=== PATIENT | female | born 1980 | race Caucasian/White ===

== ENCOUNTER 2018-04-09 12:12 | Emergency (ER) | payer MEDICAID ==
[2018-04-09 12:27] VITALS: BMI 29.8
[2018-04-09 12:31] VITALS: RESP 18; TEMP 99.1
--- NOTE | 2018-04-09 12:46 | ED PDOC ---
Arrival/HPI - General Chief Complaint: Cough, Cold, Congestion Time Seen by Provider: 04/09/18 12:33 Historian: Patient - History of Present Illness Narrative History of Present Illness (Text): 04/09/18 12:40 37 year old female, whose past medical history includes seizure, presents complaining of cough for the past month associated with headache for the past 3 days. Patient reports episode of nausea, vomiting and diarrhea yesterday, but none today. Patient tried nyquil and dayquil with no relief. Patient denies any fever, runny nose, nasal congestion, chills, chest pain, shortness of breath, abdominal pain, urinary symptoms, back pain, neck pain, headache, dizziness, or any other complaints. PMD: Dr. Malika Vieyra Time/Duration: Other (3 days) Symptom Onset: Gradual Symptom Course: Unchanged Activities at Onset: Light Context: Home Past Medical History - Provider Review Nursing Documentation Reviewed: Yes - Infectious Disease Hx of Infectious Diseases: None - Tetanus Immunization Tetanus Immunization: Unknown - Past Medical History Past Medical History: No Previous - Cardiac Hx Cardiac Disorders: No - Pulmonary Hx Respiratory Disorders: No - Neurological Hx Seizures: Yes - HEENT Hx HEENT Disorder: No - Renal Hx Renal Disorder: No - Endocrine/Metabolic Hx Endocrine Disorders: No - Hematological/Oncological Hx Blood Transfusions: (UNKNOWN) Hx Blood Transfusion Reaction: (UNKNOWN) - Integumentary Hx Dermatological Disorder: No - Musculoskeletal/Rheumatological Hx Musculoskeletal Disorders: No - Gastrointestinal Hx Gastrointestinal Disorders: No - Genitourinary/Gynecological Hx Genitourinary Disorders: No - Psychiatric Hx Psychophysiologic Disorder: No Hx Anxiety: No Hx Bipolar Disorder: No Hx Depression: No Hx Emotional Abuse: No Hx Hallucinations: No Hx Panic Disorder: No Hx Post Traumatic Stress Disorder: No Hx Psychosis: No Hx Physical Abuse: No Hx Schizophrenia: No Hx Sexual Abuse: No Hx Substance Use: No - Surgical History Hx Section: Yes (x2) - Anesthesia Hx Anesthesia Reactions: No Hx Malignant Hyperthermia: No - Suicidal Assessment Feels Threatened In Home Enviroment: No Family/Social History - Physician Review Nursing Documentation Reviewed: Yes Family/Social History: No Known Family HX Smoking Status: Never Smoked Hx Alcohol Use: No Hx Substance Use: No Hx Substance Use Treatment: No Allergies/Home Meds Allergies/Adverse Reactions: Allergies No Known Allergies Allergy (Verified 03/09/15 13:47) Home Medications: Home Meds Medication Instructions Recorded Confirmed Metoclopramide [Reglan] 5 mg PO ACTID 01/11/16 01/11/16 Review of Systems - Physician Review All systems were reviewed & negative as marked: Yes - Review of Systems Constitutional: absent: Fevers, Other (Chills) Respiratory: Cough. absent: SOB Cardiovascular: absent: Chest Pain Gastrointestinal: Diarrhea, Nausea, Vomiting. absent: Abdominal Pain Musculoskeletal: absent: Back Pain, Neck Pain Neurological: Headache. absent: Dizziness Physical Exam Vital Signs Reviewed: Yes Vital Signs Temp Pulse Resp BP Pulse Ox 04/09/18 12:12 99.1 F 89 18 118/78 98 Temperature: Afebrile Blood Pressure: Normal Pulse: Regular Respiratory Rate: Normal Appearance: Positive for: Well-Appearing, Non-Toxic, Comfortable Pain Distress: None Mental Status: Positive for: Alert and Oriented X 3 - Systems Exam Head: Present: Atraumatic, Normocephalic Pupils: Present: PERRL Extroacular Muscles: Present: EOMI Conjunctiva: Present: Normal Mouth: Present: Moist Mucous Membranes Neck: Present: Normal Range of Motion Respiratory/Chest: Present: Clear to Auscultation, Good Air Exchange. No: Respiratory Distress, Accessory Muscle Use Cardiovascular: Present: Regular Rate and Rhythm, Normal S1, S2. No: Murmurs Abdomen: No: Tenderness, Distention, Peritoneal Signs Back: Present: Normal Inspection Upper Extremity: Present: Normal Inspection. No: Cyanosis, Edema Lower Extremity: Present: Normal Inspection. No: Edema Neurological: Present: GCS=15, CN II-XII Intact, Speech Normal Skin: Present: Warm, Dry, Normal Color. No: Rashes Psychiatric: Present: Alert, Oriented x 3, Normal Insight, Normal Concentration Medical Decision Making ED Course and Treatment: 04/09/18 12:40 Impression: 37 year old female presents complaining of cough for the past month associated with headache for the past 3 days. Patient reports episode of nausea, vomiting, and diarrhea yesterday. Plan: -- CXR -- Toradol -- Reassess and disposition Prior Visits: Notes and results from previous visits were reviewed. Progress Notes: Patient given 60mg toradol IM for headache. CXR was done and was unremarkable. On re-eval patient states that she feels better. Advised tylenol/motrin for headache. Discussed etiology of month-long cough, patient denies history of GERD, post-nasal drip, or allergies. Will give Rx for zpack for bronchitis, and tessalon pearles for cough. Advised patient to follow up with PMD as needed. Return to the ED for any new or worsening symptoms. - RAD Interpretation Narrative RAD Interpretations (Text): CXR with NAD Programmer Or Analyst: ED Physician, Radiologist - Scribe Statement The provider has reviewed the documentation as recorded by the Alenaibsandra Hernandez Provider Scribe Attestation: All medical record entries made by the Scribe were at my direction and personally dictated by me. I have reviewed the chart and agree that the record accurately reflects my personal performance of the history, physical exam, medical decision making, and the department course for this patient. I have also personally directed, reviewed, and agree with the discharge instructions and disposition. Disposition/Present on Arrival - Present on Arrival Any Indicators Present on Arrival: No History of DVT/PE: No History of Uncontrolled Diabetes: No Urinary Catheter: No History of Decub. Ulcer: No History Surgical Site Infection Following: None - Disposition Have Diagnosis and Disposition been Completed?: Yes Diagnosis: Cough, Headache Disposition: HOME/ ROUTINE Disposition Time: 15:13 Patient Problems: Current Active Problems Problem Status Onset Cough Acute Headache Acute Condition: GOOD Discharge Instructions (ExitCare): Cough, Adult (DC), Headache, Adult (DC) Additional Instructions: BARBARA GREENE, thank you for letting us take care of you today. Your provider was Lorena Gerber MD and you were treated for cough,heada carlos,vomittimg. The emergency medical care you received today was directed at your acute symptoms. If you were prescribed any medication, please fill it and take as directed. It may take several days for your symptoms to resolve. Return to the Emergency Department if your symptoms worsen, do not improve, or if you have any other problems. Please contact your doctor or call one of the physicians/clinics you have been referred to that are listed on the Patient Visit Information form that is included in your discharge packet. Bring any paperwork you were given at discharge with you along with any medications you are taking to your follow up visit. Our treatment cannot replace ongoing medical care by a primary care provider outside of the emergency department. Thank you for allowing the [facility] team to be part of your care today. If you had an X-Ray or CT scan: A Radiologist will review the ED reading if any change in treatment is needed we will contact you. If you had a blood, urine, or wound culture: It will take several days for the results, if any change in treatment is needed we will contact you. If you had an STI test: It will take 48 hours for the results. Please call after 1 week if you have not heard back. Prescriptions: Azithromycin [Zithromax] 250 mg PO DAILY #6 tab Benzonatate [Tessalon Perles] 100 mg PO BID #[id number] Referrals: Manjula Vieyra MD [Primary Care Provider] - Follow up with primary Forms: [facility] [employer] (Persian)
--- NOTE | 2018-04-09 15:03 | RAD ---
Date of service: 04/09/2018 HISTORY: cough COMPARISON: No prior. TECHNIQUE: Chest PA and lateral FINDINGS: LUNGS: No active pulmonary disease. PLEURA: No significant pleural effusion identified. No pneumothorax apparent. CARDIOVASCULAR: No aortic atherosclerotic calcification present. Normal cardiac size. No pulmonary vascular congestion. OSSEOUS STRUCTURES: No significant abnormalities. VISUALIZED UPPER ABDOMEN: Normal. OTHER FINDINGS: None. IMPRESSION: No active disease.
[2018-04-09 15:24] VITALS: BP 112/73; PULSE 76; O2SAT 99
== END 2018-04-09 15:25 | disposition home or self-care (01) ==
LOC: ED 12:12
DX: R05 Cough (principal); R51 Headache
CPT/HCPCS: 71046; 81025; 96372; 99283; J1885